=== PATIENT | female | born 1960 | race African-American/Black ===

== ENCOUNTER 2016-11-30 07:02 | Emergency (ER) | payer MEDICAID ==
[~2016-11-30] VITALS: Ht 154.9 cm; Wt 102.0 kg
[2016-11-30] MEDS ORDERED: ONDANSETRON 4MG ODT PO ONE (07:30)
[2016-11-30] MEDS ORDERED: MORPHINE SULFATE 10 MG/ML CPJ IM ONE (07:30)
[2016-11-30] MEDS ORDERED: KETOROLAC 60MG/2ML VIAL IM ONE (07:30)
[2016-11-30 08:23] VITALS: BP 115/60
[2016-11-30 08:37] LABS: GLUCOSE URINE NEGATIVE (NEGATIVE); KETONES URINE NEGATIVE (NEGATIVE); LEUKOCYTE ESTERASE URINE 1+ (NEGATIVE); NITRITE URINE NEGATIVE (NEGATIVE); OCCULT BLOOD URINE 2+ (NEGATIVE); PH URINE 5.5 (4.5-8.0); PROTEIN URINE NEGATIVE (NEGATIVE); SPECIFIC GRAVITY URINE 1.019 (1.005-1.030); UROBILINOGEN URINE 0.2 E.U./dL (0.2-1.0)
[2016-11-30 08:40] LABS: CLARITY URINE CLEAR (CLEAR); COLOR URINE PALE YELLOW (YELLOW)
== END 2016-11-30 09:35 | disposition home or self-care (01) ==
LOC: ER 07:24
DX: M54.2 Cervicalgia (principal)
CPT/HCPCS: 81001; 96372; 99283; J1885; Q0162; Z7610

== ENCOUNTER 2017-07-25 06:52 | Emergency (ER) | payer MEDICAID ==
[~2017-07-25] VITALS: Ht 165.1 cm; Wt 102.5 kg
[2017-07-25 08:29] LABS: BASOPHILS % 0.4 % (0.0-2.0); EOSINOPHILS % 0.9 % (0.0-5.0); HEMATOCRIT. 34.8 % (36.0-48.0); HEMOGLOBIN. 11.3 g/dL (12.0-16.0); LYMPHOCYTES % 32.7 % (20.0-50.0); MEAN CORPUSCULAR HEMOGLOBIN 25.7 pg (28.0-32.0); MEAN CORPUSCULAR VOLUME 79.4 fL (81.0-99.0); MEAN PLATELET VOLUME 7.4 fl (7.4-10.4); MONOCYTES % 5.4 % (2.0-8.0); NEUTROPHILS % 60.6 % (40.0-76.0); PLATELET 320 x1000/uL (130-400); RED BLOOD CELL COUNT 4.38 mill/uL (4.2-5.4); RED CELL DISTRIBUTION WIDTH 15.9 % (11.6-14.6)
[2017-07-25 08:32] LABS: CHLORIDE 106 mEq/L (98-107)
[2017-07-25 08:34] LABS: PROTHROMBIN TIME 10.5 sec (9.4-11.6)
[2017-07-25 08:44] LABS: CLARITY URINE CLEAR (CLEAR); COLOR URINE YELLOW (YELLOW); KETONES URINE NEGATIVE (NEGATIVE); LEUKOCYTE ESTERASE URINE NEGATIVE (NEGATIVE); NITRITE URINE NEGATIVE (NEGATIVE); OCCULT BLOOD URINE 2+ (NEGATIVE); PH URINE 5.5 (4.5-8.0); PROTEIN URINE NEGATIVE (NEGATIVE); SPECIFIC GRAVITY URINE 1.028 (1.005-1.030)
[2017-07-25 11:43] VITALS: BP 110/70
== END 2017-07-25 12:00 | disposition home or self-care (01) ==
LOC: ER 08:37
DX: R10.32 Left lower quadrant pain (principal); N83.201 Unspecified ovarian cyst, right side
CPT/HCPCS: 36415; 71045; 76770; 80053; 81003; 83690; 85025; 85610; 99285